=== PATIENT | female | born 1965 | race Caucasian/White ===

== ENCOUNTER → 2016-12-05 | Outpatient (CLI) | payer BC ==
[~2016-12-05] MED LIST: ATOR40TA PO; CARB200T14 PO; DIPH2%T PO; LEVO50TA4 PO; LEXA20TA PO; LISI-360 PO; METO25 PO; NITR0.4S SL; PRAS10TA PO; REQU2TAB3 PO
--- NOTE | 2016-12-06 16:56 | EKG ---
Date Performed: 12/05/2016 Time Performed: 15:39:29 PTAGE: 51 years EKG: Sinus rhythm POSSIBLE INFERIOR MYOCARDIAL INFARCTION , OF INDETERMINATE AGE Since previous tracing, no significan t change noted ABNORMAL ECG PREVIOUS TRACING : 08/05/2014 09.06 DOCTOR: Imtiaz Christopher Interpretating Date/Time 12/06/2016 16:54:31
== END ==
LOC: HCAV 15:25
PROVIDERS: ATTEND Nurse Practitioner
DX: I25.10 Atherosclerotic heart disease of native coronary artery without angina pectoris (principal); E66.3 Overweight
CPT/HCPCS: 93005

== ENCOUNTER → 2017-06-23 | Outpatient (CLI) | payer BC ==
--- NOTE | 2017-06-23 11:17 | EKG ---
Date Performed: 06/23/2017 Time Performed: 08:54:45 PTAGE: 51 years EKG: Sinus rhythm POSSIBLE LEFT ATRIAL ENLARGEMENT POSSIBLE INFERIOR INFARCT, AGE UNDETERMINED BORDERLINE ECG PREVIOUS TRACING : 12/05/2016 15.39 No significant change from previous tracing noted. DOCTOR: Doron Aaron Interpretating Date/Time 06/23/2017 11:15:33
== END ==
LOC: HCAT 08:42
PROVIDERS: ATTEND Orthopaedic Surgery Sports Medicine
DX: Z01.810 Encounter for preprocedural cardiovascular examination (principal); M75.122 Complete rotator cuff tear or rupture of left shoulder, not specified as traumatic
CPT/HCPCS: 93005

== ENCOUNTER → 2017-07-04 | Day surgery (SDC) | payer BC ==
[~2017-07-04] MED LIST changes: +BUPIVACAINE HCL PF 0.25% 30 ML VIAL INFIL ONE; +DEXAMETHASONE SOD PHOS 4 MG/ML VIAL IV ONE; +KETOROLAC TROMETHAMINE 30 MG/ML (IVP) VIAL ONE; +LACTATED RINGER'S 1000 ML INJ 1,000 ML ONE; +LIDOCAINE HCL 1% PF 5 ML AMPULE OTHER ONE; +MIDAZOLAM HCL 2 MG/2 ML VIAL ONE; +MORPHINE SULFATE 4 MG/ML INJ ONE; +PROPOFOL 500 MG/50 ML BTL IV ONE; +ceFAZolin 2 GM PREMIX 50 ML ONE
--- NOTE | 2017-07-05 10:55 | MP ---
cc: DAGOBERTO MASON DP DATE OF SURGERY 07/04/2017 PREOPERATIVE DIAGNOSIS Right foot abscess with foreign body. POSTOPERATIVE DIAGNOSIS Right foot abscess with foreign body. PROCEDURE PERFORMED Incision and drainage, debridement, removal of deep foreign body right foot. SPECIMEN Deep wound culture. ESTIMATED BLOOD LOSS Less than 30 mL. COMPLICATIONS None. ANESTHESIA Total IV anesthesia with local, approximately 20 cc of 0.25% Marcaine plain. TOURNIQUET TIME 10 minutes at a setting of 215 mmHg about the patient's right ankle. PLAN OF ACTIVITY PACU, then DC home once stable per Same-Day Surgery criteria. JUSTIFICATION FOR PROCEDURE This is a pleasant 51-year-old female who sustained a puncture wound injury while at home. X-rays were taken and there was noted to be a foreign body consistent with a partially broken sewing needle. Due to the depth and possibly involving the joint, we devised a plan to move forward with surgical extraction that would allow wound exploration, deep culture and lavage of the wound. No guarantees were given or implied regarding the outcome. PROCEDURE IN DETAIL Under mild sedation the patient was brought into the operating room, placed on the operating table in the supine position. Following the induction of total IV sedation, local anesthesia was obtained about the forefoot utilizing standard block fashion. The right foot was then scrubbed, prepped and draped in the usual aseptic fashion. The foot was elevated, exsanguinated and the previously placed midcalf tourniquet was inflated to 215 mmHg. A linear incision was made at the medial aspect of the plantar first MPJ. Sharp and blunt dissection was carried down through deep adipose and fascia. The joint capsule was identified and there was noted to be a foreign body consistent with a partially broken sewing needle. It was then extracted. There was noted to be tunneling deep to the flexor hallucis longus as well as the first MPJ. Utilizing dull instrumentation, curettage took place of the tunneling of the wound, removing serous and fibrotic tissue. A wound culture was taken at this time. The tourniquet was dropped. Copious amounts of normal saline was used to further lavage the wound. One loose retention suture was placed over the incision. Intraoperative fluoroscopy was utilized to visualize the first MPJ which was free of any metallic foreign body. Of note, there was a foreign body consistent with an implant of her previous hammertoe surgery seen at the fifth digit. This was an incidental finding. A bulky bandage was placed. The patient was transferred from OR to PACU with all vital signs stable. She is partial heel weight-bear. She will follow up within 3-5 days. She has outpatient clindamycin she will continue. JOANNA Gee/BHARATH /5:12 PM /10:44 AM
== END | disposition home or self-care (01) ==
LOC: ESDC 13:25
PROVIDERS: ATTEND Podiatrist Foot & Ankle Surgery
DX: S91.341A Puncture wound with foreign body, right foot, initial encounter (principal)
CPT/HCPCS: 01470; 28193; 73660; 76000; 87070; 87205; J0690; J1100; J1885; J2250; J2270; J3010; J7120